=== PATIENT | female | born 2005 | race Caucasian/White ===

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

== ENCOUNTER 2024-05-25 12:50 | Emergency (ER) | payer OTHER, SELFPAY ==
--- NOTE | 2024-05-25 13:05 | ED.URI ---
HPI - URI/Sore Throat General Chief Complaint: Upper Respiratory Infection Stated Complaint: Sore Throat/Cough Time Seen by Provider: 05/25/24 13:27 Source: patient, RN notes reviewed and old records reviewed Mode of arrival: ambulatory Limitations: no limitations History of Present Illness HPI Narrative: Patient presents with 2 day history of sore throat, cough, fever, runny nose, headache, body aches. She has been taking ibuprofen her for her symptoms with fair relief. She reports that she feels as though she is getting better. She denies any injury or trauma. She is not any distress Related Data Home Medications ?Medication ?Instructions ?Recorded ?Confirmed ?Last Taken ?Type No Home Medications 05/25/24 Unknown History Allergies Allergy/AdvReac Type Severity Reaction Status Date / Time No Known Allergies Allergy Verified 05/25/24 13:06 Review of Systems Review of Systems: All systems reviewed & are unremarkable except as noted in HPI and below Constitutional: Constitutional: Reports no additional constitutional complaints, Reports body ache(s), Reports fever(s) and Reports headache(s) ENT: Reports system reviewed and no additional complaints, except as documented, Reports nasal congestion, Reports nasal discharge and Reports sore throat Cardiovascular: Cardiovascular: Reports no additional cardiovascular complaints Respiratory: Respiratory: Reports no additional respiratory complaints and Reports cough Gastrointestinal: Gastrointestinal: Reports no additional gastrointestinal complaints PMFSH Comments At the time of my signature, I reviewed and agree with the nursing past medical, surgical, social, and family history. There is no relevant family history pertinent to the patient complaint. Exam Const: General: cooperative, no acute distress, alert and awake Orientation/consciousness: oriented to person, oriented to place and oriented to time HENMT: Head: normal to inspection Ears: TM's normal bilaterally Mouth: Yes moist mucous membranes Resp: Effort & Inspection: normal respiratory effort and able to speak in complete sentences Auscultation: clear to auscultation bilaterally, no crackles, no rales, no rhonchi and no wheezes Cardio: Palpation: normal PMI Rate: regular rate Rhythm: regular rhythm Heart sounds: S1 normal heart sound present and S2 normal heart sound present Neuro: General: oriented to person, oriented to place and oriented to time Cranial nerves: Yes CN's II-XII intact bilaterally Psych: Appearance: grossly normal Thought process: Normal thought process present Insight: Good insight present (Psych) Judgement: Good judgement present (Psych) Course Course Level of Care: Express Care Visit Vital Signs Vital signs: Reviewed MDM - URI/Sore Throat MDM Narrative Medical decision making narrative: Reassuring physical exam, negative COVID, negative strep. Positive influenza. Supportive care measures discussed patient. Discharge instructions reviewed with patient, as well as provided in writing per nursing staff. The instructions also include specific and strict return/GO TO THE ER as well as f/u information. All questions have been answered, and the patient deny any further questions with discharge and discharge plan. Some parts of this dictation were generated by voice recognition software and may contain typographical and/or grammatical inaccuracies. Differential Diagnosis Differential diagnosis: Likely upper respiratory infection, otitis media, sinusitis, viral infection, influenza and pharyngitis Medical Records Attestation: I reviewed the patient's medical records. Lab Data Attestation: I reviewed the patient's lab results. Discharge Plan Discharge Clinical Impression: Influenza Patient Disposition: Home, Self-Care Condition: Stable Instructions: Antibiotic Form, Influenza (ED) Additional Instructions: Follow with primary care provider. Emergency department for new or worse symptoms. Treat your symptoms with [id number] products, follow package instructions Patient Language: Guyanese Prescriptions: No Action No Home Medications Follow-up/Referrals: PHYSICIAN,STREET CLEANING EQUIPMENT OPERATOR [Primary Care Provider] - Stand Alone Forms: Work/School Release IP Time of Disposition: 13:36
[2024-05-25 13:07] VITALS: BP 125/88; PULSE 54; RESP 15; TEMP 36.9; O2SAT 100
[2024-05-25 13:08] LABS: EDINFLUASCREEN Positive (Negative); EDINFLUBSCREEN Negative (Negative)
[2024-05-25 13:17] LABS: EDCOVIDSCREEN Negative (Negative)
[2024-05-25 13:39] LABS: EDSTREPNEGPOS1 Negative (Negative)
== END 2024-05-25 13:45 | disposition home or self-care (01) ==
PROVIDERS: Emergency Provider Nurse Practitioner Family
DX: J10.1 Influenza due to other identified influenza virus with other respiratory manifestations (principal); Z20.822 Contact with and (suspected) exposure to COVID-19
CPT/HCPCS: 87081; 87426; 87804; 87880; 99213; G0463

== ENCOUNTER 2025-02-02 15:44 | Emergency (ER) | payer OTHER, SELFPAY ==
--- OUTSIDE RECORDS SUMMARY | 2025-02-02 15:45 | XMS_ITS | Clinical Summary ---
Author Organization [facility] Address [address] [place] [id number] Care Team Providers Care Solvent Process Extractor Operator Name Role Phone None, Provider MD Primary Care Provider Unavaila ble Allergies No known active allergies Medications No known medications Encounters Date Type Department Care Team Description 12/06/2024 10:21 PM CDT - 12/07/2024 12:45 AM CDT Emergency [facility] [place] [address] Akiko Thornton PA Abdominal Pain Discharge Disposition: Home or Self Care (Routine Discharge) 12/06/2024 Travel from Last 3 Months Social History Tobacco Use Types Packs/Day Years Used Date Smoking Tobacco: Never Smokeless Tobacco: Never Alcohol Use Standard Drinks/Week Comments Never 0 (1 standard drink = 0.6 oz pur e alcohol) AUDIT-C Answer Date Recorded Frequency of Alcohol Consumption Never 09/15/2019 Average Number of Drinks Not on file 020 Frequency of Binge Drinking Not on file 09/01 Comments No Sex and Gender Information Value Date Recorded Sex Assigned at Female 08/09/2024 10:40 PM CDT Legal Sex Female 2:34 PM CDT Gender Identity Not on file Sexual Orientation Not on file Last Filed Vital Signs Vital Sign Reading Time Taken Comments Blood Pressure 148/90 12/06/2024 9:22 PM CDT Pulse 131 12/06/2024 9:22 PM CDT Temperature 36.5 C (97.7 F) 12/06/2024 9:22 PM CDT Respiratory Rate 18 12/06/2024 9:22 PM CDT Oxygen Saturation 99% 12/06/2024 9:22 PM CDT Inhaled Oxygen Concentration - - Weight 60.3 kg (132 lb 15 oz) 12/06/2024 9:22 PM CDT Height 152.4 cm (5') 08/10/2024 8:05 AM CDT Body Mass Index 25.96 08/10/2024 8:05 AM CDT Plan of Treatment Health Maintenance Due Date Last Done Comments Cervical Cancer Screening Pap Smear (Age 21 to 29) Every 3 Years 2003 Cervical Cancer Screening 2003 Annual Physical 2006 Meningococcal B Vaccine (1 of 2 - Standard) 2019 Hepatitis C 2021 COVID-19 Vaccine ( - season) 2025 DTaP, Tdap and Td Vaccines (7 - Td or Tdap) 01/31/2025 01/31/2015, 12/27/2007, 12/14/2004, Additional history exists Hepatitis B Vaccines Completed 05/23/2004, 02/14/2004, 2003 Pneumococcal Vaccine: Pediatrics (0 to 5 Years) and At-Risk Patients (6 to 49 Years) Aged Out 07/10/2004, 05/23/2004, 2003, Additional history exists No longer eligible based on patient's age to complete this topic HPV Vaccines Completed 03/30/2019, 02/01, 12/07/2017 Meningococcal Vaccine Completed 11/19/2020, 015 RSV Immunizations Under 20 Months Aged Out No longer eligible based on patient's age to complete this topic Procedures Procedure Name Priority Date/Time Associated Diagnosis Comments CT ABD+PEL W CON STAT 12/06/2024 11:4 0 PM CDT CHORIONIC GONADOTROPIN HCG QL STAT 12/06/2024 10:35 PM CDT BASIC METABOLIC PANEL STAT 12/06/2024 10:34 PM CDT CBC W/DIFF AUTOMATED STAT 12/06/2024 10:34 PM CDT from Last 3 Months Results * CT ABD+PEL W IV CON ONLY (12/06/2024 11:40 PM CDT) Anatomical Region Laterality Modality Abdomen Computed Tomogra phy 12/06/2024 11:4 6 PM CDT Impressions 12/06/2024 11:55 PM CDT IMPRESSION: 1. Large amount of free pelvic fluid with septations, containing a 15 mm cystic structure likely arising from the left adnexa. Findings are suspicious for a ruptured ovarian cyst, such as a hemorrhagic ovarian cyst. 2. Hepatic steatosis and mild splenomegaly. Referred By: Interpreted By: Raffi Chahal MD, 12/06/2024 11:46 PM Narrative 12/06/2024 11:55 PM CDT [address] [address] EXAMINATION: CT Abdomen and Pelvis with contrast EXAM DATE/TIME: 12/06/2024 11:24 PM REASON FOR EXAM: 19 years of age, Female, with LLQ pain, history of ovarian cysts COMPARISON: CT abdomen pelvis 08/10/2024 TECHNIQUE: Axial CT images of the abdomen and pelvis are obtained following uneventful intravenous administration of 100 cc Isovue-370. Subsequent coronal and sagittal reformatted sequences are created for evaluation. A dose lowering technique was used for this procedure, which may include, but is not limited to, dose reduction technique, automated exposure control, iterative reconstruction, ALARA (As Low As Reasonably Achievable), or Image Gently techniques. FINDINGS: Lower chest: No mass or airspace consolidation is seen in the visualized lung bases. No pleural effusion is seen. No cardiomegaly. Liver/biliary: The liver is steatotic and smooth in surface contour. No focal liver lesions are seen. Gallbladder is unremarkable. No biliary dilatation is seen. Pancreas/adrenals/spleen: Mild splenomegaly. Genitourinary: No hydronephrosis is seen. No renal mass lesion is seen. The urinary bladder is within normal limits. The uterus is unremarkable. Large amount of free pelvic fluid with septations. There is a 15 mm cystic structure within the free fluid likely arising from the left adnexa. Bowel: No bowel obstruction or inflammatory change is seen in the visualized aspects. The appendix is visualized without evidence of appendicitis. Peritoneum: No free air is seen. Lymph nodes: No lymphadenopathy is seen. Musculoskeletal: No acute fracture or suspicious osseous lesion is seen. Procedure Note Raffi Chahal MD - 12/06/2024 [facility] [address] [place], [place] [address] EXAMINATION: CT Abdomen and Pelvis with contrast EXAM DATE/TIME: 12/06/2024 11:24 PM REASON FOR EXAM: 19 years of age, Female, with LLQ pain, history ofovarian cysts COMPARISON: CT abdomen pelvis 08/10/2024 TECHNIQUE: Axial CT images of the abdomen and pelvis are obtainedfollowing uneventful intravenous administration of 100 cc Isovue-370.Subsequent coronal and sagittal reformatted sequences are created forevaluation. A dose lowering technique was used for this procedure, whichmay include, but is not limited to, dose reduction technique, automatedexposure control, iterative reconstruction, ALARA (As Low As ReasonablyAchievable), or Image Gently techniques. FINDINGS: Lower chest: No mass or airspace consolidation is seen in the visualizedlung bases. No pleural effusion is seen. No cardiomegaly. Liver/biliary: The liver is steatotic and smooth in surface contour. Nofocal liver lesions are seen. Gallbladder is unremarkable. No biliarydilatation is seen. Pancreas/adrenals/spleen: Mild splenomegaly. Genitourinary: No hydronephrosis is seen. No renal mass lesion is seen.The urinary bladder is within normal limits. The uterus is unremarkable.Large amount of free pelvic fluid with septations. There is a 15 mmcystic structure within the free fluid likely arising from the leftadnexa. Bowel: No bowel obstruction or inflammatory change is seen in thevisualized aspects. The appendix is visualized without evidence ofappendicitis. Peritoneum: No free air is seen. Lymph nodes: No lymphadenopathy is seen. Musculoskeletal: No acute fracture or suspicious osseous lesion is seen. IMPRESSION: 1. Large amount of free pelvic fluid with septations, containing a 15 mmcystic structure likely arising from the left adnexa. Findings aresuspicious for a ruptured ovarian cyst, such as a hemorrhagic ovariancyst. 2. Hepatic steatosis and mild splenomegaly. Referred By: Interpreted By: Raffi Chahal MD, 12/06/2024 11:[address] Final Result * Qualitative HCG (12/06/2024 10:35 PM CDT) PREG SCREEN-SERUM NEGATIVE 12/06/2024 11:08 PM CDT [facility] 12/06/2024 10:3 5 PM CDT [facility] Final Result [facility] [address] [place] [address], [place] [phone] * (ABNORMAL) BASIC METABOLIC PANEL (12/06/2024 10:34 PM CDT) GLUCOSE 90 70 - 99 MG/DL 12/06/2024 11:18 PM CDT [facility] BUN 14 7 - 18 MG/DL 12/06/2024 11:18 PM CDT [facility] CREATININE S/P/B 1.01 0.55 - 1.02 MG/DL 12/06/2024 11:18 PM CDT [facility] SODIUM S/P/B 140 136 - 145 MMOL/L 12/06/2024 11:18 PM CDT [facility] POTASSIUM S/P/B 3.7 3.5 - 5.1 MMOL/L 12/06/2024 11:18 PM CDT [facility] CHLORIDE S/P/B 107 97 - 115 MMOL/L 12/06/2024 11:18 PM CDT [facility] CO2 25.0 21 - 32 MMOL/L 12/06/2024 11:18 PM CDT [facility] CALCIUM S/P/B 9.1 8.5 - 10.1 MG/DL 12/06/2024 11:18 PM CDT [facility] ANION GAP 8.0 2 - 10 MMOL/L 12/06/2024 11:18 PM CDT [facility] BUN CREATININE RATIO 13.9 6 - 26 12/06/2024 11:18 PM CDT [facility] GFR ESTIMATE 81(L) >90 ML/MIN/1.7 3 M2 12/06/2024 11:18 PM CDT [facility] Comment: NOTE: eGFR is not calculated for patients <18 years of age or gender unknown. This is an estimated GFR calculation using the new CKD EPI creatinine equation without race and so does not require a correction factor for race. This estimated GFR should not be used for calculating drug doses. 12/06/2024 10:3 4 PM CDT [facility] Final Result [facility] [address] [place] [address], [place] [phone] * CBC W/DIFF AUTOMATED (12/06/2024 10:34 PM CDT) WBC 10.49 4.5 - 11.0 x10'3/uL 12/06/2024 11:00 PM CDT [facility] RBC 4.94 4.20 - 5.40 x10'6/uL 12/06/2024 11:00 PM CDT [facility] HGB 14.5 12.0 - 16.0 G/DL 12/06/2024 11:00 PM CDT [facility] HCT 42.0 38.0 - 48.0 % 12/06/2024 11:00 PM CDT [facility] MCV 85.0 81.0 - 99.0 FL 12/06/2024 11:00 PM CDT [facility] MCH 29.4 27.0 - 31.0 PG 12/06/2024 11:00 PM CDT [facility] MCHC 34.5 32.0 - 36.0 G/DL 12/06/2024 11:00 PM CDT [facility] RDW 11.9 11.5 - 14.5 % 12/06/2024 11:00 PM CDT [facility] PLT 309 130 - 400 x10'3/uL 12/06/2024 11:00 PM CDT [facility] MPV 10.7 9.3 - 12.2 FL 12/06/2024 11:00 PM CDT [facility] DIFFERENTIAL TYPE AUTOMATED DIFFERENTIAL 12/06/2024 11:00 PM CDT [facility] NEUTROPHILS % 66.6 % 12/06/2024 11:00 PM CDT [facility] LYMPHOCYTES % 26.6 % 12/06/2024 11:00 PM CDT [facility] MONOCYTES % 5.4 % 12/06/2024 11:00 PM CDT [facility] EOSINOPHILS 0.7 % 12/06/2024 11:00 PM CDT [facility] BASOPHILS 0.4 % 12/06/2024 11:00 PM CDT [facility] IMMATURE GRANS % 0.3 % 12/07/19 11:00 PM CDT [facility] ABS. NEUTROPHILS 6.99 1.80 - 7.70 x10'3/uL 12/06/2024 11:00 PM CDT [facility] ABS. LYMPHOCYTES 2.79 1.00 - 4.80 x10'3/uL 12/06/2024 11:00 PM CDT [facility] ABS. MONOCYTES 0.57 0.24 - 0.86 x10'3/uL 12/06/2024 11:00 PM CDT [facility] ABS. EOSINOPHILS 0.07 0.04 - 0.36 x10'3/uL 12/06/2024 11:00 PM CDT [facility] ABS. BASOPHILS 0.04 0.01 - 0.08 x10'3/uL 12/06/2024 11:00 PM CDT [facility] ABS. IMMATURE GRANULOCYTES 0.03 0.00 - 0.49 x10'3/uL 12/06/2024 11:00 PM CDT [facility] 12/06/2024 10:3 4 PM CDT [facility] Final Result [facility] [address] [place] [address], from Last 3 Months [facility] Care Teams Solvent Process Extractor Operator Relationship Specialty Start Date End Date None, Provider, PCP - General UNKNOWN PHYSICIAN SPECIALTY 08/10/24
[2025-02-02 15:51] VITALS: BP 124/78; PULSE 76; RESP 18; TEMP 36.6; O2SAT 100
--- NOTE | 2025-02-02 16:11 | ED_ITS ---
HPI - URI/Sore Throat General Chief Complaint: Upper Respiratory Infection Stated Complaint: URI Time Seen by Provider: 02/02/25 16:05 Source: patient and RN notes reviewed Mode of arrival: ambulatory Limitations: no limitations History of Present Illness HPI Narrative: 19-year-old female presents today with 4 day history of sore throat, nasal congestion, cough, bilateral ear pressure. Denies fever or cough. Currently rates her pain 1/10 and has tried no OTC medication for symptoms prior to arrival. Father was diagnosed with COVID 4 days ago. Patient did a COVID test at home yesterday that was negative.. No OTC treatment prior to arrival. Related Data Home Medications ?Medication ?Instructions ?Recorded ?Confirmed ?Last Taken ?Type drospirenone 3 mg-estetrol 14.2 mg tablet PO 02/02/25 Unknown History (28) tablet (Nextstellis) Allergies Allergy/AdvReac Type Severity Reaction Status Date / Time No Known Allergies Allergy Verified 02/02/25 15:51 PMFSH Comments At time of signature, I have reviewed and agree with nursing past medical, surgical, social and family history unless otherwise noted. Please see nursing chart for further information. There is no relevant family history pertinent to the presenting complaint Exam Narrative: GENERAL: Well-appearing, well-nourished, and in no acute distress. HEAD: Normocephalic, atraumatic. EYES: EOMI. No redness or drainage. Conjunctivae normal. ENT: Mucous membranes pink and moist. Nares clear. No rhinorrhea. TMs normal bilaterally. Throat normal with hypertrophic tonsils. Uvula midline. NECK: Normal AROM. Supple. No lymphadenopathy. CHEST: No respiratory distress. Clear to auscultation. HEART: Regular rate and rhythm. No murmur appreciated. EXTREMITIES: Normal range of motion. No edema. SKIN: Warm, dry, no rash. Capillary refill normal. Normal skin turgor. NEURO: No focal deficits. Alert and oriented x3. Gait steady. PSYCH: Normal affect. No signs of depression or anxiety. Course Course Level of Care: Express Care Visit Vital Signs Vital signs: Vital Signs Temperature 98 F 02/02/25 15:51 Pulse Rate 76 02/02/25 15:51 Respiratory Rate 18 02/02/25 15:51 Blood Pressure 124/78 02/02/25 15:51 Pulse Oximetry 100 02/02/25 15:51 Oxygen Delivery Room Air 02/02/25 15:51 Temperature 98 F 02/02/25 15:51 Pulse Rate 76 02/02/25 15:51 Respiratory Rate 18 02/02/25 15:51 Blood Pressure 124/78 02/02/25 15:51 Pulse Oximetry 100 02/02/25 15:51 Oxygen Delivery Room Air 02/02/25 15:51 Reviewed MDM - URI/Sore Throat MDM Narrative Medical decision making narrative: 19-year-old female presents today with 4 day history of sore throat, nasal congestion, cough, bilateral ear pressure. Currently rates her pain 1/10 and has tried no OTC medication for symptoms prior to arrival. Father was diagnosed with COVID 4 days ago. Patient did a COVID test at home yesterday that was negative. Upon exam, patient has some hypertrophic tonsils, but states this is baseline for her, otherwise exam is normal. Influenza, COVID-19, and rapid strep negative. Symptoms likely viral in etiology. Discussed [id number] medication use and duration of illness. No prescription medications indicated at this time. Anticipatory guidance given. Differential Diagnosis Differential diagnosis: Likely upper respiratory infection, otitis media, viral infection, influenza, pharyngitis and other (COVID-19, strep throat) Lab Data Attestation: I reviewed the patient's lab results. Lab results narrative: rapid strep negative Labs: Lab Results 02/02/25 Range/Units 16:14 POC Influenza A Ag Negative (Negative) POC Influenza B Ag Negative (Negative) POC SARS CoV-2 Ag Negative (Negative) Critical Care Time Critical Care Time Critical Care Time: No Discharge Plan Discharge Clinical Impression: Upper respiratory infection Qualifiers: URI type: unspecified URI Qualified Code(s): J06.9 - Acute upper respiratory infection, unspecified Patient Disposition: Home Condition: Stable Instructions: Upper Respiratory Infection (DC) Additional Instructions: Your influenza, COVID-19, and rapid strep swabs are all negative today. Your Symptoms are likely due to a viral illness, which is not treated with antibiotics. Virus symptoms can last for up to 7-10days. Take Tylenol or ibuprofen for pain or fever, if able. Rest and stay hydrated. Follow up with your PCP in 5 days if symptoms are not improving. Go to the ER immediately if you develop shortness of breath, difficulty swallowing, or any other concerning symptoms. Patient Language: Bel[place]ian Prescriptions: No Action Nextstellis 3 mg- 14.2 mg (28) tablet PO Follow-up/Referrals: UNKNOWN,DOCTOR [Primary Care Provider] Stand Alone Forms: Work/School Release IP Time of Disposition: 16:35
[2025-02-02 16:15] LABS: EDCOVIDSCREEN Negative (Negative)
[2025-02-02 16:16] LABS: EDINFLUASCREEN Negative (Negative); EDINFLUBSCREEN Negative (Negative)
[2025-02-02 16:31] LABS: EDSTREPNEGPOS1 Negative (Negative)
== END 2025-02-02 16:39 | disposition home or self-care (01) ==
PROVIDERS: Emergency Provider Nurse Practitioner
DX: J06.9 Acute upper respiratory infection, unspecified (principal); Z20.822 Contact with and (suspected) exposure to COVID-19
CPT/HCPCS: 87426; 87804; 87880; 99212; G0463